=== PATIENT | male | born 1955 | race Caucasian/White ===

== ENCOUNTER 2020-12-10 17:27 | Emergency (ER) | payer MEDICARE | END 2020-12-10 20:23 | disposition home or self-care (01) | LOC: ER1 17:27 | DX: U07.1 COVID-19 (principal); I10 Essential (primary) hypertension; Z90.89 Acquired absence of other organs | CPT/HCPCS: 0240U; 99283 ==

== ENCOUNTER 2021-05-26 18:26 | Emergency (ER) | payer MEDICARE ==
[2021-05-26 19:27] LABS: HEMOGLOBIN 14.7 gm/dl (14.0-17.5); RED BLOOD COUNT 4.68 M/UL (4.20-5.50); WHITE BLOOD COUNT 13.6 K/UL (4.5-11.0)
[2021-05-26 19:44] LABS: BUN/CREATININE RATIO 31 (0-10)
[2021-06-30] MEDS ORDERED: AMLODIPINE BESYL5 MG PO (08:55)
[2021-06-30] MEDS ORDERED: LOSARTAN-HCTZ1 EAC1 PO (08:56)
[2021-06-30] MEDS ORDERED: TENORMIN100 MG PO (08:56)
[2021-06-30] MEDS ORDERED: ASPIRIN325 MG PO (08:57)
== END 2021-05-27 02:49 | disposition home or self-care (01) ==
LOC: ER1 18:26
PROVIDERS: Physician Assistant
DX: R07.89 Other chest pain (principal); I10 Essential (primary) hypertension; Z90.49 Acquired absence of other specified parts of digestive tract; Z20.822 Contact with and (suspected) exposure to COVID-19
CPT/HCPCS: 71045; 80053; 82550; 82553; 83874; 83880; 84484; 85025; 93005; 99285; U0002

== ENCOUNTER → 2021-06-23 | Outpatient (CLI) | payer MEDICARE ==
[~2021-06-23] MED LIST: AMLODIPINE BESYL5 MG PO; ASPIRIN325 MG PO; LOSARTAN-HCTZ1 EAC1 PO; TENORMIN100 MG PO
== END ==
LOC: ECHO 09:00
DX: R06.00 Dyspnea, unspecified (principal); R94.31 Abnormal electrocardiogram [ECG] [EKG]; R94.39 Abnormal result of other cardiovascular function study
CPT/HCPCS: ECHO; 93306

== ENCOUNTER → 2021-06-30 | Outpatient (CLI) | payer MEDICARE ==
[2021-06-30 08:49] LABS: HEMOGLOBIN 15.9 gm/dl (14.0-17.5); RED BLOOD COUNT 5.05 M/UL (4.20-5.50); WHITE BLOOD COUNT 9.8 K/UL (4.5-11.0)
[2021-06-30 09:35] LABS: BUN/CREATININE RATIO 24 (0-10)
== END ==
LOC: CATH 06-23 11:00
PROVIDERS: Internal Medicine Cardiovascular Disease
DX: I25.110 Atherosclerotic heart disease of native coronary artery with unstable angina pectoris (principal); I10 Essential (primary) hypertension; E11.9 Type 2 diabetes mellitus without complications; M17.10 Unilateral primary osteoarthritis, unspecified knee; Z79.899 Other long term (current) drug therapy; Z90.49 Acquired absence of other specified parts of digestive tract; Z98.890 Other specified postprocedural states; Z88.0 Allergy status to penicillin
CPT/HCPCS: 80048; 80061; 82810; 85025; 93005; 99152; 99153; C1751; C1769; C1887; C1894; J1644; J2250; J3010; J7030; Q9967

== ENCOUNTER → 2021-08-24 | Outpatient (CLI) | payer MEDICARE | LOC: HEART 5 09:39 | DX: R06.02 Shortness of breath (principal); R06.00 Dyspnea, unspecified; R91.8 Other nonspecific abnormal finding of lung field | CPT/HCPCS: 71046; 94060; 94729; 95012 ==